=== PATIENT | female | born 1955 | race Caucasian/White ===

== ENCOUNTER 2021-11-08 10:53 | Day surgery (SDC) | payer MEDICARE ==
[~2021-11-08] VITALS: Ht 167.6 cm; Wt 94.8 kg
[2021-11-08] MEDS ORDERED: Nexium40 MG (11:16)
[2021-11-08] MEDS ORDERED: ESCI10 (11:16)
[2021-11-08] MEDS ORDERED: OLME5TAB (11:17)
[2021-11-08] MEDS ORDERED: ROSU5 (11:17)
[2021-11-08] MEDS ORDERED: SUCR1 (11:17)
[2021-11-08] MEDS ORDERED: TRAM50 (11:17)
== END 2021-11-08 12:33 | disposition home or self-care (01) ==
LOC: ORSCSDS 10:53
PROVIDERS: Anesthesiology
PROC: 3E0R33Z Introduction of Anti-inflammatory into Spinal Canal, Percutaneous Approach (ICD-10-PCS; principal; 2021-11-08 12:00)
DX: M51.16 Intervertebral disc disorders with radiculopathy, lumbar region (principal); F32.A Depression, unspecified; I10 Essential (primary) hypertension; E78.00 Pure hypercholesterolemia, unspecified; K21.9 Gastro-esophageal reflux disease without esophagitis; E66.9 Obesity, unspecified; Z68.34 Body mass index [BMI] 34.0-34.9, adult; Z87.891 Personal history of nicotine dependence; Z79.899 Other long term (current) drug therapy
CPT/HCPCS: J1040

== ENCOUNTER 2022-02-20 09:26 | Day surgery (SDC) | payer MEDICARE ==
[~2022-02-20] VITALS: Ht 167.6 cm; Wt 92.1 kg
[~2022-02-20 09:26] MED LIST: ESCI10; Nexium40 MG; OLME5TAB; ROSU5; SUCR1; TRAM50
== END 2022-02-20 11:40 | disposition home or self-care (01) ==
LOC: ORSCSDS 09:26
PROVIDERS: Anesthesiology
PROC: 3E0R33Z Introduction of Anti-inflammatory into Spinal Canal, Percutaneous Approach (ICD-10-PCS; principal; 2022-02-20 10:30)
DX: M51.16 Intervertebral disc disorders with radiculopathy, lumbar region (principal); M54.50 Low back pain, unspecified; I10 Essential (primary) hypertension; E78.00 Pure hypercholesterolemia, unspecified; K21.9 Gastro-esophageal reflux disease without esophagitis; F32.A Depression, unspecified; Z79.899 Other long term (current) drug therapy
CPT/HCPCS: J1040

== ENCOUNTER 2025-02-12 10:56 | Emergency (ER) | payer MEDICARE ==
[~2025-02-12] VITALS: Ht 170.2 cm; Wt 86.2 kg
[2025-02-12] MEDS ORDERED: NS 1,000 ML IV SCH (11:20)
[2025-02-12] MEDS ORDERED: Mag Sulfate 1 GM/D5% 100ML 100 ML IV ONE (11:20)
[2025-02-12 11:25] LABS: BASOPHILS ABSOLUTE AUTO 0.09 K/mm3 (0.00-0.23); BASOPHILS PERCENT AUTO 1 % (0-2); EOSINOPHILS ABSOLUTE AUTO 0.21 K/mm3 (0.00-0.68); EOSINOPHILS PERCENT AUTO 2 % (0-6); Hematocrit 40.5 % (33.0-51.0); Hemoglobin 13.1 g/dL (11.5-16.0); IMMATURE GRAN ABSOLUTE AUTO 0.03 K/mm3 (0.00-0.10); IMMATURE GRAN PERCENT AUTO 0 % (0-1); LYMPHOCYTES ABSOLUTE AUTO 1.98 K/mm3 (0.84-5.20); LYMPHOCYTES PERCENT AUTO 22 % (21-46); MONOCYTES ABSOLUTE AUTO 1.03 K/mm3 (0.16-1.47); MONOCYTES PERCENT AUTO 12 % (4-13); Mean Corpuscular HGB Conc 32.3 g/dL (31.5-36.5); Mean Corpuscular Volume 84 fL (80-100); NEUTROPHILS ABSOLUTE AUTO 5.58 K/mm3 (1.96-9.15); NEUTROPHILS PERCENT AUTO 63 % (41-73); NRBC ABSOLUTE 0.00 K/mm3 (0.00-0.02); NRBC Auto 0.0 /100 WBC (0.0-0.2); Platelet Count 362 K/mm3 (150-400); RDW Coefficient Variation 13.4 % (11.7-14.2); RDW Standard Deviation 41.1 fL (35.1-46.3)
[2025-02-12 11:53] LABS: Alanine Aminotransfer (ALT/SGP 30.0 U/L (12-78); Albumin, Blood 4.1 g/dL (3.4-5.0); Albumin/Globulin Ratio 1.1 (0.8-1.8); Anion Gap 9.0 mmol/L (3-11); Aspartate Aminotrans (AST/SGOT 31.0 U/L (12-37); Bilirubin, Total 0.9 mg/dL (0.1-1.0); Blood Urea Nitrogen 16.0 mg/dL (8-24); CO2, Blood 25.0 mmol/L (21-32); Calcium, Blood 9.0 mg/dL (8.5-10.1); Chloride, Blood 107.0 mmol/L (98-108); Creatinine, Blood 0.71 mg/dL (0.40-1.00); Globulin, Blood 3.6 g/dL (2.2-4.0); Glucose, Blood 97.0 mg/dL (70-99); Magnesium, Blood 2.3 mg/dL (1.6-2.4); Potassium, Blood 4.2 mmol/L (3.5-5.5); Sodium, Blood 137.0 mmol/L (136-145); Total Protein, Blood 7.7 g/dL (6.4-8.2)
[2025-02-12] MEDS ORDERED: Metoprolol Tartrate 1 MG/ML 5 ML VIAL IV ONE ×2 (12:35→13:05)
[2025-02-12 14:45] VITALS: BP 118/75
[2025-02-12] MEDS ORDERED: TOPROL XL25 MG PO (14:47)
[2025-02-12] MEDS ORDERED: ELIQUIS5 M2 PO (14:47)
== END 2025-02-12 15:11 | disposition home or self-care (01) ==
LOC: ER 10:56
PROVIDERS: Emergency Medicine
DX: I48.0 Paroxysmal atrial fibrillation (principal); I10 Essential (primary) hypertension; E78.5 Hyperlipidemia, unspecified; Z79.899 Other long term (current) drug therapy
CPT/HCPCS: 80053; 83735; 84443; 84484; 85025; 93005; 93010; 96365; 96375; 99285-25; A9270; J0153; J3475; J7030